=== PATIENT | female | born 1990 | race Caucasian/White ===

== ENCOUNTER 2018-02-03 23:37 | Emergency (ER) | payer BC, OTHER ==
[~2018-02-03] VITALS: Ht 165.1 cm; Wt 91.5 kg
[2018-02-04 00:48] LABS: MICROSCOPIC NOT IND
[2018-02-04 00:50] LABS: CULTURE INDICATED? NO
[2018-02-04 00:51] LABS: BASOPHILS # (AUTO) 0.01 x10^3/uL (0-0.1); BASOPHILS % (AUTO) 0 % (0-1); EOSINOPHILS # (AUTO) 0.05 x10^3/uL (0-0.4); EOSINOPHILS % (AUTO) 0 % (1-7); LYMPHOCYTES # (AUTO) 1.33 x10^3/uL (1-3.4); LYMPHOCYTES % (AUTO) 9 % (22-44); MD NO; MEAN CORPUSCULAR HEMOGLOBIN 29.7 pg (27.0-34.8); MEAN CORPUSCULAR HGB CONC 34.3 g/dL (32.4-35.8); MEAN CORPUSCULAR VOLUME 86.7 fL (80-100); MEAN PLATELET VOLUME 8.8 fL (7.4-10.4); MONOCYTES # (AUTO) 0.47 x10^3/uL (0.2-0.8); MONOCYTES % (AUTO) 3 % (2-9); NEUTROPHILS # (AUTO) 12.48 x10^3/uL (1.8-6.8); NEUTROPHILS % (AUTO) 87 % (42-75); PLATELET COUNT 329 x10^3/uL (130-400); RED BLOOD COUNT 4.49 x10^6/uL (3.82-5.3); RED CELL DISTRIBUTION WIDTH 13.5 % (9.6-15.2)
[2018-02-04 01:00] LABS: ALANINE AMINOTRANSFERASE 16 U/L (12-78); ALBUMIN 3.7 g/dL (3.4-5.0); ANION GAP 6 mmol/L (5-15); CALCIUM 8.8 mg/dL (8.5-10.1); CHLORIDE 107 mmol/L (98-107); CREATININE 0.63 mg/dL (0.55-1.02)
[2018-02-04 01:16] LABS: ALKALINE PHOSPHATASE 47 U/L (45-117); BILIRUBIN,TOTAL 0.3 mg/dL (0.2-1.0); TOTAL PROTEIN 7.5 g/dL (6.4-8.2)
[2018-02-04] MEDS ORDERED: ONDANSETRON 2MG/ML, 2ML ONE (02:15)
[2018-02-04] MEDS ORDERED: FENTANYL PF 100 MCG/2ML ONE (02:15)
[2018-02-04] MEDS ORDERED: FENTANYL PF 100 MCG/2ML IV ONE (02:30)
[2018-02-04] MEDS ORDERED: ONDANSETRON 2MG/ML, 2ML IVPush ONE (02:30)
[2018-02-04] MEDS ORDERED: SODIUM CHLORIDE FLUSH 10ML SYR IVF ONE (02:30)
[2018-02-04 03:00] VITALS: BP 130/71
== END 2018-02-04 03:03 | disposition home or self-care (01) ==
LOC: ED 02-04 01:30
DX: O03.4 Incomplete spontaneous abortion without complication (principal); Z87.891 Personal history of nicotine dependence
CPT/HCPCS: 36415; 76830; 80053; 81003; 84702; 84703; 85025; 96374; 96375; 99285; J2405; J3010

== ENCOUNTER 2020-10-26 18:17 | Outpatient (CLI) | payer OTHER ==
[~2020-10-26] VITALS: Ht 165.1 cm; Wt 88.4 kg
[2020-10-26 18:50] VITALS: BP 117/51
[2020-10-26 19:08] LABS: MICROSCOPIC INDICATED
== END 2020-10-26 20:00 | disposition home or self-care (01) ==
LOC: LDOP 18:17
PROVIDERS: ATTEND Obstetrics & Gynecology
DX: O46.93 Antepartum hemorrhage, unspecified, third trimester (principal); Z3A.35 35 weeks gestation of pregnancy
CPT/HCPCS: 59025; 81001; 87086

== ENCOUNTER 2020-11-24 08:03 | Inpatient (IN) | payer OTHER ==
[~2020-11-24] VITALS: Ht 165.1 cm; Wt 105.0 kg
[2020-11-25] MEDS ORDERED: TERBUTALINE 1 MG/ML, 1ML SQ PRN (07:00)
[2020-11-25] MEDS ORDERED: TERBUTALINE 1 MG/ML, 1ML IVPush PRN (07:00)
[2020-11-25] MEDS ORDERED: LACTATED RINGERS 1,000 ML IV SCH (07:00)
[2020-11-25] MEDS ORDERED: OXYTOCIN 30U/ 0.9% NaCL 500ML 500 ML IV ONE (07:00)
[2020-11-25] MEDS ORDERED: OXYTOCIN 30U/ 0.9% NaCL 500ML 500 ML IV PRN (07:00)
[2020-11-25] MEDS ORDERED: METOCLOPRAMIDE 5 MG/ML, 2ML IVPush PRN (07:00)
[2020-11-25] MEDS ORDERED: SODIUM CITRATE/CITRIC ACID 30 ML UDC PO PRN (07:00)
[2020-11-25] MEDS ORDERED: D5%-LACTATED RINGERS 1,000 ML IV SCH (07:00)
[2020-11-25] MEDS ORDERED: ONDANSETRON 2MG/ML, 2ML IVPush PRN (07:00)
[2020-11-25] MEDS ORDERED: FENTANYL PF 100 MCG/2ML IV PRN (07:00)
[2020-11-25] MEDS ORDERED: PENICILLIN GK 5,000,000 UNITS in DEXTROSE 5% 100 ML IVPB ONE (07:00)
[2020-11-25] MEDS ORDERED: MISOPROSTOL 25 MCG TABLET ONE (07:19)
[2020-11-25] MEDS ORDERED: NEWBORN KIT ONE (07:19)
[2020-11-25] MEDS ORDERED: OXYTOCIN 30U/ 0.9% NaCL 500ML 500 ML ONE (07:19)
[2020-11-25 07:29] LABS: BASOPHILS % (AUTO) 1 % (0-1); EOSINOPHILS % (AUTO) 1 % (1-7); LYMPHOCYTES % (AUTO) 22 % (22-44); MEAN CORPUSCULAR HEMOGLOBIN 26.3 pg (27.0-34.8); MEAN CORPUSCULAR HGB CONC 32.8 g/dL (32.4-35.8); MEAN PLATELET VOLUME 9.7 fL (7.4-10.4); MONOCYTES % (AUTO) 4 % (2-9); NEUTROPHILS % (AUTO) 72 % (42-75); PLATELET COUNT 270 x10^3/uL (130-400); RED BLOOD COUNT 4.32 x10^6/uL (3.82-5.3); RED CELL DISTRIBUTION WIDTH 14.1 % (9.6-15.2)
[2020-11-25 07:31] LABS: MD NO
[2020-11-25] MEDS: MISOPROSTOL 25 MCG TABLET VG PRN ×2 (07:40→12:36)
[2020-11-25] MEDS ORDERED: FENTANYL/BUPIV./NS/PF 250 ML EPIDCONT SCH (10:00)
[2020-11-25] MEDS ORDERED: NALOXONE 0.4 MG/ML, 1ML IVPush PRN (10:00)
[2020-11-25] MEDS ORDERED: LACTATED RINGERS 1,000 ML IVBOLUS PRN (10:00)
[2020-11-25] MEDS ORDERED: EPHEDRINE 50 MG/ML, 1ML IVPush PRN (10:00)
[2020-11-25] MEDS: LACTATED RINGERS 1,000 ML IV SCH ×2 (18:00→21:33)
[2020-11-25] MEDS: PENICILLIN GK 2,500,000 UNITS in DEXTROSE 5% 100 ML IVPB SCH ×2 (18:14→22:14)
[2020-11-25] MEDS: FENTANYL PF 100 MCG/2ML IVPush PRN ×2 (19:06→21:34)
[2020-11-25 19:35] VITALS: BP 123/67
[2020-11-26] VITALS: BP 130/71
[2020-11-26] MEDS: LACTATED RINGERS 1,000 ML IV SCH ×5 (02:00→18:00)
[2020-11-26] MEDS: PENICILLIN GK 2,500,000 UNITS in DEXTROSE 5% 100 ML IVPB SCH ×5 (02:12→17:52)
[2020-11-26] MEDS ORDERED: FENTANYL/BUPIV./NS/PF 250 ML EPIDCONT SCH (08:00)
[2020-11-26] MEDS ORDERED: NALOXONE 0.4 MG/ML, 1ML IVPush PRN (08:00)
[2020-11-26] MEDS ORDERED: EPHEDRINE 50 MG/ML, 1ML IVPush PRN (08:00)
[2020-11-26] MEDS ORDERED: LACTATED RINGERS 1,000 ML IVBOLUS PRN (08:00)
[2020-11-26] MEDS ORDERED: SODIUM CITRATE/CITRIC ACID 15 ML UDC ONE (13:58)
[2020-11-26] MEDS: FENTANYL PF 100 MCG/2ML IVPush PRN (22:59)
[2020-11-26] MEDS ORDERED: CALCIUM CARBONATE 500 MG TAB.CHEW PO PRN (23:30)
[2020-11-26] MEDS ORDERED: OXYTOCIN 30U/ 0.9% NaCL 500ML 500 ML IV SCH (23:30)
[2020-11-26] MEDS ORDERED: SIMETHICONE 80 MG CHEW TAB PO PRN (23:30)
[2020-11-26] MEDS ORDERED: ONDANSETRON 2MG/ML, 2ML IV PRN (23:30)
[2020-11-26] MEDS ORDERED: METHYLERGONOVINE 0.2 MG/ML IM PRN (23:30)
[2020-11-26] MEDS ORDERED: ACETAMINOPHEN 325 MG TABLET PO PRN (23:30)
[2020-11-26] MEDS ORDERED: TRANEXAMIC ACID 100 MG/ML, 10ML IV ONE (23:30)
[2020-11-26] MEDS ORDERED: MISOPROSTOL 200 MCG TABLET PR PRN (23:30)
[2020-11-26] MEDS ORDERED: CARBOPROST TROMETHAMINE 250 MCG/ML, 1ML IM PRN (23:30)
[2020-11-27 00:54] VITALS: BP 127/81
[2020-11-27] MEDS: IBUPROFEN 600 MG TABLET PO PRN ×4 (01:13→23:17)
[2020-11-27] MEDS: LACTATED RINGERS 1,000 ML IV SCH ×2 (02:00)
[2020-11-27 05:05] VITALS: BP 102/70
[2020-11-27 07:22] LABS: BASOPHILS % (AUTO) 1 % (0-1); EOSINOPHILS % (AUTO) 0 % (1-7); LYMPHOCYTES % (AUTO) 10 % (22-44); MEAN CORPUSCULAR HGB CONC 32.5 g/dL (32.4-35.8); MEAN PLATELET VOLUME 9.8 fL (7.4-10.4); MONOCYTES % (AUTO) 5 % (2-9); NEUTROPHILS % (AUTO) 85 % (42-75); PLATELET COUNT 210 x10^3/uL (130-400); RED BLOOD COUNT 3.77 x10^6/uL (3.82-5.3); RED CELL DISTRIBUTION WIDTH 13.9 % (9.6-15.2)
[2020-11-27 07:25] VITALS: BP 111/73
[2020-11-27 07:31] LABS: MD NO
[2020-11-27] MEDS: PRENATAL VIT/IRON/FA 1 EACH TABLET PO SCH (08:35)
[2020-11-27] MEDS: DOCUSATE 100 MG CAPSULE PO PRN ×2 (08:35→23:17)
[2020-11-27] MEDS: OXYcodone/APAP 5/325MG TABLET PO PRN ×5 (08:36→23:17)
[2020-11-27 12:00] VITALS: BP 111/72
[2020-11-27] MEDS ORDERED: MEASLES,MUMPS&RUBELLA VACC/PF 0.5 ML SQ-VACC ONE ×2 (15:20→15:30)
[2020-11-27 16:40] VITALS: BP 105/70
[2020-11-27 19:59] VITALS: BP 108/70
[2020-11-28] MEDS: IBUPROFEN 600 MG TABLET PO PRN ×3 (05:50→17:48)
[2020-11-28] MEDS: OXYcodone/APAP 5/325MG TABLET PO PRN ×4 (05:51→15:00)
[2020-11-28] MEDS: DOCUSATE 100 MG CAPSULE PO PRN (08:39)
[2020-11-28] MEDS: PRENATAL VIT/IRON/FA 1 EACH TABLET PO SCH (08:39)
[2020-11-28] MEDS ORDERED: IBUP-1222 PO (17:24)
== END 2020-11-28 18:02 | disposition home or self-care (01) | DRG 807 ==
LOC: LDIP 11-25 06:19 → 2NW 11-27 00:50
PROVIDERS: ADMIT Obstetrics & Gynecology; ATTEND Obstetrics & Gynecology
PROC: 10E0XZZ Delivery of Products of Conception, External Approach (ICD-10-PCS; principal; 2020-11-26)
PROC: 0HQ9XZZ Repair Perineum Skin, External Approach (ICD-10-PCS; 2020-11-26)
PROC: 10H07YZ Insertion of Other Device into Products of Conception, Via Natural or Artificial Opening (ICD-10-PCS; 2020-11-26)
PROC: 3E0R3BZ Introduction of Anesthetic Agent into Spinal Canal, Percutaneous Approach (ICD-10-PCS; 2020-11-26)
PROC: 00HU33Z Insertion of Infusion Device into Spinal Canal, Percutaneous Approach (ICD-10-PCS; 2020-11-26)
DX: O99.824 Streptococcus B carrier state complicating childbirth (principal); Z37.0 Single live birth; O99.354 Diseases of the nervous system complicating childbirth; O70.0 First degree perineal laceration during delivery; Z3A.39 39 weeks gestation of pregnancy; Z20.822 Contact with and (suspected) exposure to COVID-19; Z88.6 Allergy status to analgesic agent; G43.909 Migraine, unspecified, not intractable, without status migrainosus
CPT/HCPCS: 36415; J7121; 85025; 86592; 86850; 86900; 87635; 90707; G0378; J2405; J2540; J3010; J2590; J7120